=== PATIENT | female | born 1955 | race Caucasian/White ===

== ENCOUNTER 2017-09-29 15:52 | Inpatient (IN) | payer OTHER ==
[~2017-09-29] VITALS: Ht 170.2 cm; Wt 79.9 kg
--- NOTE | 2017-09-29 21:03 | ED PSYCHIATRIC COMPLAINT ---
See Addendum History of Present Illness General Chief Complaint: Psychiatric Related Complaint Stated Complaint: ANXIETY/DEPRESSION Source: patient, family Exam Limitations: no limitations Vital Signs & Intake/Output Vital Signs & Intake/Output Vital Signs Date Time Temp Pulse Resp B/P B/P Pulse O2 O2 Flow FiO2 Mean Ox Delivery Rate 09/30 1101 97.2 90 22 144/77 100 Room Air 09/30 1019 98.2 87 20 129/80 09/30 0900 98.2 87 20 129/80 96 Room Air 09/30 0644 97.0 85 18 142/68 97 Room Air 09/30 0020 98.2 90 18 132/76 98 Room Air 09/29 2207 100 Room Air 09/29 1600 98.8 100 16 128/88 97 Room Air ED Intake and Output 09/30 0000 09/29 1200 Intake Total Output Total Balance Patient 180 lb Weight Weight Reported by Patient Measurement Method Allergies Coded Allergies: No Known Allergies (09/29/17) Reconcile Medications Amlodipine Besylate 5 MG TABLET 1 TAB PO QAM BP (Reported) Clonazepam 0.5 MG TABLET 1 TAB PO QAM ANXIETY (Reported) Escitalopram Oxalate 20 MG TABLET 1 TAB PO QAM MENTAL HEALTH (Reported) Venlafaxine HCl (Venlafaxine HCl ER) 37.5 MG CAP.ER.24H 1 CAP PO DAILY MENTAL HEALTH (Reported) Triage Note: PT WAS AT THERAPY IN [place] AND BROKE DOWN CRYING AND WAS ASKED IF SHE WOULD LIKE TO COME TO HOSPITAL AND PT DECIDED SHE DID. PT STATES SHE WAS DOING OK AND THEN GOT BACK IN THE CYCLE OF DEPRESSION AND CURRENTLY TAKES MEDS FOR IT AND HAS BEEN TAKING THEM DIRECTED. PT STATES SHE HAS BEEN FEELING HERSELF FOR A WEEK AND WANTED TO GET IT CHECKED ON. PT DENIES SI/HI DENIES DRUG OR ETOH USE. Triage Nurses Notes Reviewed? yes Onset: Gradual Duration: getting worse Timing: recent history Severity: severe Severity Numbers: 10 HPI: Patient is a 62-year-old female with past medical history depression and anxiety and blood pressure since emergency room with concerns of worsening depression and anxiety were patient presents brought in by family members awaits the concern today was at the therapist visit of worsening depression and anxiety and patient is unable to perform her daily activities. Patient is compliant with her medications and nothing new for prescriptions. She denies any illness denies any suicidal or homicidal ideation or auditory or visual hallucinations. Denies any illicit drug use alcohol or tobacco use. Patient does live with her brother Family is also here to confirm story (Matias Watson) Past History Travel History Traveled to [place] past 21 day No Medical History Any Pertinent Medical History? see below for history Cardiovascular: hypertension Psychiatric: anxiety, depression Surgical History Surgical History: non-contributory Psychosocial History What is your primary language Martiniquais Tobacco Use: Never used ETOH Use: denies use Illicit Drug Use: denies illicit drug use Family History Hx Contributory? No (Matias Watson) Review of Systems Review of Systems Constitutional: Reports: no symptoms. EENTM: Reports: no symptoms. Respiratory: Reports: no symptoms. Cardiovascular: Reports: no symptoms. GI: Reports: no symptoms. Genitourinary: Reports: no symptoms. Musculoskeletal: Reports: no symptoms. Skin: Reports: no symptoms. Neurological/Psychological: Reports: see HPI, anxiety, depressed. Hematologic/Endocrine: Reports: no symptoms. Immunologic/Allergic: Reports: no symptoms. All Other Systems: Reviewed and Negative (Matias Watson) Physical Exam Physical Exam General Appearance: no apparent distress, alert, comfortable Head: atraumatic Eyes: Bilateral: normal appearance. Ears, Nose, Throat: hearing grossly normal Neck: normal inspection Respiratory: normal breath sounds Cardiovascular: regular rate/rhythm Neurological/Psychiatric: no motor/sensory deficits, awake, alert, normal mood/ affect Appearance/Memory/Insight: appropriate appearance, appropriate insight, denies illness Behavoir/Eye Contact/Speech: compulsive, normal speech, good eye contact Thoughts/Hallucinations: no apparent hallucination Skin: intact, normal color, warm/dry SAD PERSONS Done? patient not suicidal (Matias Watson) Progress Differential Diagnosis: drug intoxication, drug overdose, drug withdrawal, electrolyte abnormality, encephalitis, hypoglycemia, hypothyroidism, IC hem/mass /tumor, meningitis Plan of Care: Orders Procedure Date/time Status Regular Diet 09/30 B Active URINE DRUG SCREEN FOR ER ONLY 09/30 2119 Complete ETHANOL 09/30 2119 Complete COMPREHENSIVE METABOLIC PANEL 09/30 2119 Complete CBC WITHOUT DIFFERENTIAL 09/30 2119 Complete ED CRISIS PSYCH CONSULT 09/30 2119 Active Current Medications Sig/Oanh Start time Last Medication Dose Stop Time Status Admin Amlodipine Besylate 5 MG QAM 09/30 1000 UNVr 09/30 (Norvas) 1019 Laboratory Tests 09/29/17 2223: Anion Gap 12, Estimated GFR > 60, BUN/Creatinine Ratio 13.3, Glucose 101 H, Calcium 9.6, Total Bilirubin 0.8, AST 22, ALT 41, Alkaline Phosphatase 83, Total Protein 7.3, Albumin 4.5, Globulin 2.8, Albumin/Globulin Ratio 1.6, CBC w Diff NO MAN DIFF REQ, RBC 5.41 H, MCV 89.8, MCH 29.3, MCHC 32.7 L, RDW 13.6, MPV 7.8, Gran % 54.7, Lymphocytes % 34.1, Monocytes % 9.4 H, Eosinophils % 1.6, Basophils % 0.2, Absolute Granulocytes 4.4, Absolute Lymphocytes 2.8, Absolute Monocytes 0.8 H, Absolute Eosinophils 0.1, Absolute Basophils 0, Serum Alcohol < 10.0 09/29/17 2211: Urine Opiates Screen < 100, Methadone Screen 51, Barbiturate Screen < 60, Ur Phencyclidine Scrn < 6.00, Amphetamines Screen < 100, U Benzodiazepines Scrn < 85, Urine Cocaine Screen < 50, Urine Cannabis Screen < 5.00 Patient underwent initial examination shows no signs of intoxication Patient is not suicidal or homicidal and not a threat to herself or others Patient has unremarkable physical exam findings I had a long discussion with patient and family members in which they requested a psychiatric evaluation for her presentation of depression and anxiety, Blood work will be obtained urinalysis to be obtained Psychiatric consultation will most likely be provided to patient tomorrow which I explained to the patient she may leave due to her presentation however she will stay in the emergency room for her symptoms Discussed HANDoff to Dr. 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 (Ralph Verma MD) Departure Departure Disposition: STILL A PATIENT Condition: Stable Clinical Impression Primary Impression: Depression Secondary Impressions: Anxiety Referrals: Tuan Britton MD (PCP/Family) Departure Forms: Customer Survey General Discharge Information (Matias Watson) Departure Comments 09/30/17 1250 The patient was signed out to me by Dr. Verma at 7 AM. She is currently on a bed search by crisis. She complained of depression and anxiety on my evaluation. (Ralph Fuchs DO)
[2017-09-29] MEDS ORDERED: CLONAZEPAM0.5 M2 PO (21:51)
[2017-09-29] MEDS ORDERED: ESCITALOPRAM OX20 MG PO (21:51)
[2017-09-29] MEDS ORDERED: VENLAFAXINE H37.5 M4 PO (21:52)
[2017-09-29] MEDS ORDERED: AMLODIPINE BESYL5 M1 PO (21:52)
[2017-09-29 22:35] LABS: ABSOLUTE BASOPHIL COUNT 0 /CUMM (0.0-0.2); ABSOLUTE EOSINOPHIL COUNT 0.1 /CUMM (0.0-0.7); ABSOLUTE GRANULOCYTE CT 4.4 /CUMM (1.4-6.5); ABSOLUTE LYMPH COUNT 2.8 /CUMM (1.2-3.4); ABSOLUTE MONOCYTE COUNT 0.8 /CUMM (0.10-0.60); BASOPHIL % 0.2 % (0.0-2.0); EOSINOPHIL % 1.6 % (0-5); GRANULOCYTE % 54.7 % (42.2-75.2); HEMATOCRIT 48.6 % (37-47); MEAN CORPUSCULAR HGB 29.3 PG (27.0-31.0); MEAN CORPUSCULAR HGB CONC 32.7 G/DL (33.0-37.0); MEAN CORPUSCULAR VOLUME 89.8 FL (81.0-99.0); MEAN PLATELET VOLUME 7.8 FL (7.4-10.4); PLATELET COUNT 392 /CUMM (130-400); RBC DISTRIBUTION WIDTH 13.6 % (11.5-14.5); RED BLOOD CELL CT 5.41 /CUMM (4.20-5.40); WHITE BLOOD CELL COUNT 8.1 /CUMM (4.8-10.8)
--- NOTE | 2017-09-30 11:10 | ED PSYCH CRISIS CONSULTATION ---
Crisis Consult Basic Assessment Date of Consult: 09/30/17 Responsible Person/Accompanied By: self/sister Letitia Insurance Authorization: Insurance #1: Insurance name: DRAKE HERBERT Phone number: Policy number: [id number] Group number: Authorization number: ED Provider: Patient's ED Provider: Ralph Fuchs DO Primary Care Physician: Patient's PCP: Tuan Britton MD PCP's Current Psychiatrist: Dr Natalie Patel [phone] Chief Complaint: Psychiatric Related Complaint Patient's Quote: I'm feeling anxious. Worse than yesterday. I want to cry. Present Illness: Pt is a 62 yo female presenting to [facility] ED last evening after having "an emotional breakdown" in her therapist's office. Pt was brought to [facility] by her sister Letitia. Pt reports experiencing increased depression, anxiety, hopelessness and helplessness since being informed by her brother on Tuesday that she needs to find a new place to live. Pt has a hx of Major depression with an inpatient admission at [facility] in the 1980s for depressive episode and about 1 yr ago at [facility] in [facility] again for depression. Pt reports last admission was due to feeling overwhelmed with 's terminal illness. Pt has been living with her brother past yr since her husdand's . Pt reports past week experiencing anhedonia, loss of energy, inability to concentrate, inability to make decisions, over eating and hypersomnia. Pt reports spending days in bed. Pt is in outpatient therapy with Shy Ledesma and is prescribed Klonopin, Lexapro and Effexor by Dr Natalie King in [place]. She reports attempting to get in touch with Dr King this week but she is away from the office and didn't feel comfortable adjusting patients medication without meeting with her in person. 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 C-SSRS completed. Pt reports feeling overwhelmed with stress and is experiencing panic attacks. Pt denies SI/HI; AH/VH. No reports no hx of attempts or self injury. Pt reported protective factors are supportive family specifically 2 sisters and her ruben. Pt reports being an active Jehovah Witness. Pt presents as anxious and tearful but became more calm as consult proceeded. Pt is OX3 and reports not feeling safe at this time to be outside of the hospital. Case reviewed with Dr Nicolas with pt meeting criteria for a voluntary psychiatric admission. Pt agrees with plan and informed that crisis will conduct a bed search. Patient's Address: [address] [place] [id number] Other Phone Number: Who Do You Live With? Brother Family/Informants Interviewed: collateral provided by pt sister Letitia [phone]. She reports pt has always had emotional problems but has had more difficulties since her last yr. She reports pt is not functioning past week since their brother informed her she can't live their anymore. She reports pt is hopeless/helpless and getting worse. Allergies - Coded Allergies: No Known Allergies (09/29/17) Current Medications - Scheduled Medications Amlodipine Besylate 5 MG TABLET 1 TAB PO QAM BP #30 (Reported) Entered as Reported by Janey Crawford on 09/29/172151 Clonazepam 0.5 MG TABLET 1 TAB PO QAM ANXIETY #30 (Reported) Entered as Reported by Janey Crawford on 09/29/172150 Escitalopram Oxalate 20 MG TABLET 1 TAB PO QAM MENTAL HEALTH #30 (Reported) Entered as Reported by Janey Crawford on 09/29/172150 Venlafaxine HCl (Venlafaxine HCl ER) 37.5 MG CAP.ER.24H 1 CAP PO DAILY MENTAL HEALTH #30 (Reported) Entered as Reported by Janey Crawford on 09/29/172151 Laboratory Results: Laboratory Tests 09/29/172222: Anion Gap 12, Estimated GFR > 60, BUN/Creatinine Ratio 13.3, Glucose 101 H, Calcium 9.6, Total Bilirubin 0.8, AST 22, ALT 41, Alkaline Phosphatase 83, Total Protein 7.3, Albumin 4.5, Globulin 2.8, Albumin/Globulin Ratio 1.6, CBC w Diff NO MAN DIFF REQ, RBC 5.41 H, MCV 89.8, MCH 29.3, MCHC 32.7 L, RDW 13.6, MPV 7.8, Gran % 54.7, Lymphocytes % 34.1, Monocytes % 9.4 H, Eosinophils % 1.6, Basophils % 0.2, Absolute Granulocytes 4.4, Absolute Lymphocytes 2.8, Absolute Monocytes 0.8 H, Absolute Eosinophils 0.1, Absolute Basophils 0, Serum Alcohol < 10.0 09/29/17 2211: Urine Opiates Screen < 100, Methadone Screen 51, Barbiturate Screen < 60, Ur Phencyclidine Scrn < 6.00, Amphetamines Screen < 100, U Benzodiazepines Scrn < 85, Urine Cocaine Screen < 50, Urine Cannabis Screen < 5.00 Past History Past Medical History Cardiovascular: hypertension Psychiatric: anxiety, depression Past Surgical History Surgical History: non-contributory Psychosocial History Strengths/Capabilities: strong familyy support. Pt reports motivation to get help. Psychiatric Treatment History Psych Treatment Psychiatric Treatment Yes Inpatient Treatment Yes Outpatient Treatment Yes Location of Treatment [facility] (1980s); [facility] 2017; shy Baltazar outpatient - Reason for Treatment Depression Anxiety Response to Treatment Pt long hx of depression. Increased since spouse became ill and last yr. Diagnosis by History: Major Depression Substance Use/Abuse History Drug Use/Abuse Substances Used/Abused No Substance Abuse Treatment Substance Abuse Treatment Past Substance Abuse [place] No Inpatient Treatment No Outpatient Treatment No Comments: pt denies etoh and substance use Current Mental Status Mental Status Orientation: Person, Place, Situation Affect: Anxious, Depressed, Hopeless, Lonely, Sad Speech: WNL Neuro-vegetative: Anhedonia, Appetite Increased, Energy Decreased, Helpless, Hypersomnia, Loss of Interest, Sleep Disturbance Appearance Appearance- Dress/Hygiene: hospital scrubs; tearful; groomed, laying in bed during consult Behaviors Thought Process: WNL Thought Content: WNL Memory: WNL Insight: Fair SI/HI Risk Assessment Past Suicidal Ideation/Attempts No Current Suicidal Ideation/Att No Past Homicidal Ideation/Att: No Current Homicidal Ideation/Attempts No Degree of Intent: None Gravely Disabled: Inability Risk Factors: chronic/serious med cond., high anxiety/distress, SA/MH hospitalized Lethality Ratin PTSD Checklist PTSD Done? patient declined ED Management Sitter: Yes Restraints: No DSM5/PS Stressors/Medical Prob Diagnosis' (DSM 5, Stressors, Medical): Major depressive D/O F33.2 Panic D/O F41.0 bereavement housing finances hypertension Current GAF: 25 Comments: Pt reports increase in depression and anxiety past week escalted by brother telling her she will need to move out. Departure Disposition Psych Medical Clearance Date: 09/30/17 Medically Cleared at: 0800 Time Started: 0800 Time Ended: 0845 Psychiatrist Consulted: Benita Nicolas MD Date Disposition Established: 09/30/17 Time Disposition Established: 1200 Plan for Disposition - Modality: Inpatient Psychiatry Additional Instructions: [facility] [place] [phone] Referrals Reba GRIMALDO,Tuan Beavers (PCP/Family)
--- NOTE | 2017-09-30 15:10 | IP CRISIS DIAG ASSESS PSYCH ---
Diagnostic Assessment Basic Assessment Insurance Authorization: Insurance #1: Insurance name: DRAKE HERBERT Phone number: Policy number: [id number] Group number: Authorization number: [id number] Primary Care Physician: Patient's PCP: Tuan Britton MD PCP's Patient's Quote: I'm feeling anxious. Worse than yesterday. I want to cry. Present Illness: Pt is a 62 yo female presenting to [facility] ED last evening after having "an emotional breakdown" in her therapist's office. Pt was brought to [facility] by her sister Letitia. Pt reports experiencing increased depression, anxiety, hopelessness and helplessness since being informed by her brother on Tuesday that she needs to find a new place to live. Pt has a hx of Major depression with an inpatient admission at [facility] in the 1980s for depressive episode and about 1 yr ago at [facility] in [facility] again for depression. Pt reports last admission was due to feeling overwhelmed with 's terminal illness. Pt has been living with her brother past yr since her husdand's . Pt reports past week experiencing anhedonia, loss of energy, inability to concentrate, inability to make decisions, over eating and hypersomnia. Pt reports spending days in bed. Pt is in outpatient therapy with Shy Ledesma and is prescribed Klonopin, Lexapro and Effexor by Dr Natalie King in [place]. She reports attempting to get in touch with Dr King this week but she is away from the office and didn't feel comfortable adjusting patients medication without meeting with her in person. 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 C-SSRS completed. Pt reports feeling overwhelmed with stress and is experiencing panic attacks. Pt denies SI/HI; AH/VH. No reports no hx of attempts or self injury. Pt reported protective factors are supportive family specifically 2 sisters and her ruben. Pt reports being an active Jehovah Witness. Pt presents as anxious and tearful but became more calm as consult proceeded. Pt is OX3 and reports not feeling safe at this time to be outside of the hospital. Case reviewed with Dr Nicolas with pt meeting criteria for a voluntary psychiatric admission. Pt agrees with plan and informed that crisis will conduct a bed search. Patient's Address: [address] [place] [id number] Other Phone Number: Who Do You Live With? Brother Feel Safe Where You Live? Yes Feel Safe in Your Relationship Yes Marital Status: Do You Have Children? No Primary Language? Thai Language(s) Spoken At Home: Thai Family/Informants Interviewed: collateral provided by pt sister Letitia [phone]. She reports pt has always had emotional problems but has had more difficulties since her last yr. She reports pt is not functioning past week since their brother informed her she can't live their anymore. She reports pt is hopeless/helpless and getting worse. Allergies - Coded Allergies: No Known Allergies (09/29/17) Current Medications - Scheduled Medications Amlodipine Besylate 5 MG TABLET 1 TAB PO QAM BP #30 (Reported) Entered as Reported by Janey Crawford on 09/29/172151 Clonazepam 0.5 MG TABLET 1 TAB PO QAM ANXIETY #30 (Reported) Entered as Reported by Janey Crawford on 09/29/172150 Escitalopram Oxalate 20 MG TABLET 1 TAB PO QAM MENTAL HEALTH #30 (Reported) Entered as Reported by Janey Crawford on 09/29/172150 Venlafaxine HCl (Venlafaxine HCl ER) 37.5 MG CAP.ER.24H 1 CAP PO DAILY MENTAL HEALTH #30 (Reported) Entered as Reported by Janey Crawford on 09/29/172151 Consequences of Psych Med Use: pt reports no med changes since January 2017 Lab Results: Laboratory Tests 09/29/172222: Anion Gap 12, Estimated GFR > 60, BUN/Creatinine Ratio 13.3, Glucose 101 H, Calcium 9.6, Total Bilirubin 0.8, AST 22, ALT 41, Alkaline Phosphatase 83, Total Protein 7.3, Albumin 4.5, Globulin 2.8, Albumin/Globulin Ratio 1.6, CBC w Diff NO MAN DIFF REQ, RBC 5.41 H, MCV 89.8, MCH 29.3, MCHC 32.7 L, RDW 13.6, MPV 7.8, Gran % 54.7, Lymphocytes % 34.1, Monocytes % 9.4 H, Eosinophils % 1.6, Basophils % 0.2, Absolute Granulocytes 4.4, Absolute Lymphocytes 2.8, Absolute Monocytes 0.8 H, Absolute Eosinophils 0.1, Absolute Basophils 0, Serum Alcohol < 10.0 09/29/17 2211: Urine Opiates Screen < 100, Methadone Screen 51, Barbiturate Screen < 60, Ur Phencyclidine Scrn < 6.00, Amphetamines Screen < 100, U Benzodiazepines Scrn < 85, Urine Cocaine Screen < 50, Urine Cannabis Screen < 5.00 Toxicology Screen Completed? Yes Results: negative Symptoms of Use: denies use Past History Abuse/Trauma History Trauma History/Current Trauma: Denies Legal History Current Legal Status: none Psychosocial History Strengths/Capabilities: strong familyy support. Pt reports motivation to get help. Psychiatric Treatment History Psych Treatment Psychiatric Treatment Yes Inpatient Treatment Yes Outpatient Treatment Yes Location of Treatment [facility] (1980s); [facility] 2017; shy Ledesma outpatient - Reason for Treatment Depression Anxiety Response to Treatment Pt long hx of depression. Increased since spouse became ill and last yr. Diagnosis by History: Major Depression Risk Factors: chronic/serious med cond., high anxiety/distress, SA/MH hospitalized Substance Use/Abuse History Drug Use/Abuse minimum 12mo Hx Substances Used/Abused No Substance Abuse Treatment Substance Abuse Treatment Past Substance Abuse [place] No Inpatient Treatment No Outpatient Treatment No Education History Highest Level of Education: some college Preferred Learning Style: visual, auditory, experiential Current Mental Status Mental Status Orientation: Person, Place, Situation Affect: Anxious, Depressed, Hopeless, Lonely, Sad Speech: WNL Neuro-vegetative: Anhedonia, Appetite Increased, Energy Decreased, Helpless, Hypersomnia, Loss of Interest, Sleep Disturbance Appearance Appearance- Dress/Hygiene: hospital scrubs; tearful; groomed, laying in bed during consult Behaviors Thought Process: WNL Thought Content: WNL Memory: WNL Insight: Fair SI/HI Risk Assessment - Minimum 6mo History- Past Suicidal Ideation/Attempts No Current Suicidal Ideation/Att No Past Homicidal Ideation/Att: No Current Homicidal Ideation/Attempts No Degree of Intent: None Gravely Disabled: Inability Risk Factors: chronic/serious med cond., high anxiety/distress, SA/MH hospitalized Lethality Ratin Needs/Init TX Plan/Goals: Psychiatric Evaluation Medication Assessment Individual Group and Family Meetings Coordinated Discharge Planning AUDIT-C Questionnaire: AUDIT-C Questionnaire: Response Value ETOH use in the past year Never 0 # drinks typical/day Doesn't Drink 0 6 or > drinks per occasion Never 0 Total 0 DSM5/PS Stressors/Medical Prob Diagnosis' (DSM 5, Stressors, Medical): Major depressive D/O F33.2 Panic D/O F41.0 bereavement housing finances hypertension Current GAF: 25 Comments: Pt reports increase in depression and anxiety past week escalted by brother telling her she will need to move out.
[2017-09-30 19:10] VITALS: BP 145/91
[2017-10-01 07:54] VITALS: BP 131/69
[2017-10-01 12:07] VITALS: BP 132/88
--- NOTE | 2017-10-01 12:45 | CPS PROVIDER INIT ASMT PSYCH ---
Psychiatric Admission Ground Operations Crew Member's Note Reviewed: Yes Patient Seen and Examined: Yes Identifying Information: middle aged white woman, well groomed Chief Complaint: depression Reaction to Hospitalization: agreeable History of Present Illness Onset of Illness: just over one year ago since of Circumstances Leading to Admission: depression, anxiety, and pending loss of housing situation. Problem(s) Justifying Need for Admission: depression, hopeless Other HPI: S This is a 62 year old woman wth a history of depressive and anxiety sx, who was brought in after an emotional appt in her therapists office by her family member. Her of 20 years in August one year ago, and she has been living at her brothers home for the last year, and recently found out that she would be unable to live there any longer. She reports anhedonia, loss of energy, staying in bed, not being able to function initially. Also endorses panic attacks. She is anxious, talkative and tangential, but not psychotic or disorganized. She stated that when her was ill last year she was also hospitalized, in [facility]. She reported one past admission to [facility] about 30 years ago. She denies suicide attempts, active suicidal thoughts or recent thoughts or plans. Has has no evidence of hallucinations. She has been taking lexapro clonazepam and Effexor w/o issue with her therapist for some time. Past Psychiatric History Past Diagnosis(es)- if any: depressive and anxiety disorders Past Precipitating Factors- if any: loss of - Include inpatient and outpatient treatment Treatment History: outpatient treatment. History of Suicide Attempts or Gestures denies Substance Abuse History: denies Allergies: Coded Allergies: No Known Allergies (09/29/17) Home Med List: lexapro, clonazepam, effexor - Include any medical condition(s) that may - impact the patient's recovery/remission Past Medical History: hypertension on amlodipine Past History Medical History Cardiovascular: hypertension Psychiatric: anxiety, depression Surgical History Surgical History: non-contributory Psychiatric Family/Social Hx Family History Psychiatric Illness: denies Substance Use: denies Suicides: denies Social History Living Situation: living with brother and his Significant Relationships (family/friends): one year ago Education: completed freshman year, mother took her out and gave her a special education tutor, however she did not graduate or get her ged 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 - #1 Recognizing dangerous situations. - #2 Coping Skills. - #3 Basic information about quitting. Status of Tobacco Cessation Counseling: Not Applicable Cessation Med Status Not Applicable Alcohol Screening - ETOH screen POS if BAL >=80 or Audit-C>= M4/F3 Audit-C Score from Diag Assess: 0 Blood Alcohol Level: Laboratory Tests 09/29 2222 Toxicology Serum Alcohol (<10 MG/DL) < 10.0 Alcohol Use Screening Results: Neg per Audit C &/or BAL - If ETOH counseling indicated - the following topics are required. - #1 Express concern about the patient's - drinking at unhealthy levels, include informing - of national norms for moderate drinking: - men <= 14 drinks/week, max 4 drinks/occasion - women <= 7 drinks/week, max 3 drinks/occasion - #2 Providing feedback, including linking alcohol to - negative physical effects (liver injury, hypertension) - negative emotional effects (relationship problems and - depression) - negative occupational consequences (reduced work - performance) - #3 Advising the patient to abstain from alcohol or - to drink below national norms for moderate drinking - (as listed above). Status of ETOH Use Counseling: N/A B/C NO ETOH Use Metabolic Screening - Screen if on a Neuroleptic Medication - Metabolic screening should include: - Blood Pressure, BMI, Glucose or Hgb A1c, & a - Lipid profile from within the past 365 days. Metabolic Screening () Not Applicable, patient not on a neuroleptic. OR () Patient on a neuroleptic(s) . Enter below results for Hemoglobin A1C, and lipid panel if obtained during the last 365 days. BMI: 27.600 Blood Pressure: 144/80 Laboratory Results From [facility] (If applicable): Exam and Plan Mental Status Examination Ambulation Status: intact Appearance: well groomed Attitude towards examiner: pleasant Psychomotor activity: normal Behavior: somewhat anxious Quality of speech: normal Affect: full Mood: anxious Suicidal Ideation: none Homicidal Ideation: none Hallucinations: none Paranoid/Delusional Material: none Difficulties with thought organization: somewaht tangential but out of anxiety rather than a thought disorder Insight: fair Judgment: fair Orientation: x3 Cognition: intact, Memory Function: intact Estimate of intellectual functioning: average - despite her poor education level, appears to have functioned well per her, with work history. Assets/Strengths Patient Identified Assets/Strengths: self aware, self advocate Impression/Plan Impression and Plan: 62 year old woman with worsening depression, neuroveg sx including anhedonia, withdrawal, increased sleep, lethargy, presented after pending loss of housing. She has a number of stressors and needs further adjustment of her medications and addressing her residual sx during her admission. Plan; Continue effexor, lexapro - she is at low doses, however her qtc is 505. Will discuss with global position system technician tmr, repeat ekg. She is asymptomatic. Her labs look normal. She is on amlodipine for her hypertension. - Include all active medical diagnosis that require tx DSM 5 Diagnosis(es): r/o mdd - Initial Tx Plan for Active Psych & Medical Conditions Treatment Plan: milieu therapy, groups, individual therapy, family meeting if indicated, medication. - Factors that would help patient function - in a less restrictive setting. Factors: poor functioning, recent loss of spouse, potential lack of housing. Address with education, support, milieu therapy, groups, physical activity, medication, and collateral from therapist if indicated.
[2017-10-01 16:06] VITALS: BP 136/85
[2017-10-01 19:50] VITALS: BP 144/80
--- NOTE | 2017-10-01 22:40 | History & Physical ---
General Information and HPI MD Statement: Patient was seen in the psychiatric unit for routine medical history and physical. History of Present Illness: Patient is a 62-year-old female with history of depression admitted to the psychiatric unit for further management of her symptoms. Currently offers no complaints. Denies cough. Denies nausea vomiting. Denies abdominal pain. Denies heat or cold intolerance. Denies weight loss. Denies dysuria. Denies diarrhea or constipation. Denies bloody stools. Routine EKG done in the psychiatric service shows nonspecific T-wave inversions. Patient denies any cardiac history. Denies any complaints of chest pain or shortness of breath. denies palpitations. She gives no family history of coronary disease although she stated her mother had some type of arrhythmia Allergies/Medications Allergies: Coded Allergies: No Known Allergies (09/29/17) Home Med list Amlodipine Besylate 5 MG TABLET 1 TAB PO QAM BP (Reported) Escitalopram Oxalate 20 MG TABLET 1 TAB PO QAM MENTAL HEALTH (Reported) Past History Travel History Traveled to [place] past 21 day No Medical History Cardiovascular: hypertension Psychiatric: anxiety, depression Surgical History Surgical History: non-contributory Past Family/Social History Psychosocial History ETOH Use: denies use Illicit Drug Use: denies illicit drug use Review of Systems Review of Systems Constitutional: Denies: see HPI. Exam & Diagnostic Data Last 24 Hrs of Vital Signs/I&O Vital Signs Date Time Temp Pulse Resp B/P B/P Pulse O2 O2 Flow FiO2 Mean Ox Delivery Rate 10/01 1950 98.4 99 144/80 10/01 1606 93 136/85 10/01 1207 88 132/88 10/01 0758 99 131/69 10/01 0754 98.7 99 131/69 Intake & Output 10/01 1600 10/01 0800 10/01 0000 Intake Total Output Total Balance Patient 79.946 kg Weight Physical Exam General Appearance Alert, Oriented X3, Cooperative, No Acute Distress Skin No Rashes HEENT Atraumatic, PERRLA, EOMI, Mucous Membr. moist/pink Neck Supple Lymphatic Axillary nl, Cervical nl Cardiovascular Regular Rate, Normal S1, Normal S2, No Murmurs Lungs Clear to Auscultation, Normal Air Movement Abdomen Normal Bowel Sounds, Soft, No Tenderness Neurological Exam Findings: Normal Gait, Normal Speech, Strength at 5/5 X4 Ext Cranial Nerves II through XII: WNL Extremities No Clubbing, No Cyanosis, No Edema, Normal Pulses Assessment/Plan Assessment: 62-year-old female with history of depression abated psychiatry service for further management of symptoms. She has no other significant medical history other than psychiatric history. Found to have nonspecific T-wave changes on EKG. This was done routinely. She offers no complaints. No EKG for comparison. Recommend evaluation of EKG by the cardiology service. Further disposition will be based on their recommendations. This was discussed with the psychiatric unit staff. As Ranked By This Provider Problem List: 1. Depression Miscellaneous Miscellaneous Documentation Attending Case Discussed With: Benita Nicolas MD Primary Care Physician: Tuan Britton MD Level of Patient Care: Solomon
[2017-10-02 07:36] VITALS: BP 136/64
[2017-10-02 11:58] VITALS: BP 137/84
--- NOTE | 2017-10-02 14:47 | CP SOUTH PROGRESS NOTE PSYCH ---
Psych (Inpt) Progress Note Progress Note Include the following elements, when applicable: Involvement in the active treatment of the patient with behavioral observations of the patient and the patient's response to the treatment. Review of the ongoing treatment process in the context of the treatment plan. Indication of how multi-disciplinary staff members are carrying out the treatment plan. Plans for future interventions and recommendations for revision of the treatment plan. Liaison with other physicians/providers. Progress Note: Woke up early b/c roommate heavy breather but otherwise no issues. Appeared anxious today and less willing to speak with me, but overall pleasant and well related. She asked about her discharge and I informed her that the team will meet her tmr and discuss her tx plan. She stated that she has regained her appetite, joking that she has gained too much weight for how much she has been eating in the last years. Sleep fine apart from her roommate. Has been socializing well. Repeat ekg was 485 qtc improving. MSE: fairly well groomed woman, coherent logical but anxious. Her mood is neutral and affect is full and reactive. Speech is normal. Her thinking is concrete. Her thought content is free of delusions, thoughts to harm self "I never think like that" she stated or anyone else. Not hallucinating. Her insight is fair and judgment is fair. 62 year old woman w/ hx depressive sx, loss of spouse one year ago, with slow improvement in level of her anxiet and depression. continue current plan of care. Band Sawyer stated will comment on ekg if notable.
[2017-10-02 15:47] VITALS: BP 146/91
[2017-10-02 19:33] VITALS: BP 148/76
[2017-10-03 07:41] VITALS: BP 148/86
[2017-10-03 12:16] VITALS: BP 148/86
--- NOTE | 2017-10-03 15:07 | CP SOUTH PROGRESS NOTE PSYCH ---
Psych (Inpt) Progress Note Progress Note Vital Signs Date Time Temp Pulse B/P O2 FiO2 10/03 1216 100 148/86 10/03 0858 148/86 10/03 0741 98.8 99 148/ MSE: The patient had odd responses ?? seemed to be thought disordered or overwhelmed , or both seemed very anxious, she acknowledged feeling depressed and anxious; she was tearful during the interview, she was talkative with mild pressure I did not pick up driver on any delusions, denied thoughts to harm self/ "I never think like that" she denied hallucinations, she has regained her appetite, Assessment: 62 year old woman w/ hx depressive sx, loss of spouse one year ago, with slow improvement in level of her anxiet and depression. Plan: D/C PRN Neurontin Add PRN Ativan for anxiety and insomnia as she appeared very anxious/overwhelmed
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
--- NOTE | 2017-10-03 16:45 | SOCIAL WORKER PROG NOTE PSYCH ---
Social Work Progress Note Progress Note Attempted to engage Paola in some discussion about what brought her to the ER. She shared that she lost her a year ago this past August. Her had chirrosis of the liver. She reports being traumatized by the loss. I asked if she received any therapy at the time of her loss? She said no, but then later shared that she was currently in treatment with a therapist (María Chowdary )once a week in [place] and a psychiatrist (Dr. Natalie Patel). She said she has been staying with her Brother Tim in [place] since she lost her . She is fore[place] her [place] [facility] [place] She stated that she does need to move on from her Brother's house. I asked if she felt pressure to do so? She said no and that he treats her well. She has put her name on a housing list in [place] and plans to put her name on other housing lists potentially. I asked if she would sign a release for her Brother? It took her 15 minutes to review the release and ask questions. She asked if I had a zipdrive to a computer? I told her I didn't and that her information does not leave the hospital unless she permits it to do so. She seemed particularly paranoid around that topic. She then rewrote the whole release in her hand writing and eventually signed it for her Brother and 2 Sisters. She shared that she would like to meet with them in person. I told her I would be setting up a meeting. Her presentation was somewhat disorganized and paranoid. She later asked if she could use my office phone to call her Brother. I told her that she really needed to use the patient phone. She seemed a little irritated by my response.
[2017-10-03 20:06] VITALS: BP 126/70
[2017-10-04 07:52] VITALS: BP 151/93
--- NOTE | 2017-10-04 11:07 | SOCIAL WORKER PROG NOTE PSYCH ---
Social Work Progress Note Progress Note SAM VILLA [id number] 1955 SAM VILLA [id number] Pended Authorization # Client Authorization # Type of Request [id number] CONCURRENT Date of Admission/ Start of Services Requested From Submission Date 09/30/2017 10/04/2017 10/04/2017
--- NOTE | 2017-10-04 11:10 | SOCIAL WORKER PROG NOTE PSYCH ---
Social Work Progress Note Progress Note Called Paola's Brother August to schedule a family meeting [phone]. Told him I was looking to also involve his Sister Letitia. He suggested that I contact Letitia as she has a more difficult schedule. Called Letitia [phone]. She would also like her Sister Vivi there. Ended up needing to coordinate a meeting for Tuesday at 1:30pm. Letitia expressed how difficult it' s been trying to help Paola. She specifically stated "she needs to learn how to do things for herself." She shared that Paola was not in contact with her family for many years. She feels that Paola's was very controlling and that he was not that nice of a person even though Paola may portray him that way. She said that now she is just getting to know her sister again. She really doesn't know what things were like for her before. She said [place] in [place] was filthy and that she was collecting plastic bags. She shared that she is going to have to move out of her Brother's home at some point. She stated that her Brother's has a Bipolar Disorder and Paola's behaviors/ symptoms are impacting her sister yarely. Met with Paola. She reported not sleeping that well due to her roommate snoring. She was moved to another room, so hopefully that issue will resolve tonight. She reported no anxiety today and no issues with her mood. She presented herself as if everything is fine. She reports no voices and no negative thoughts. She didn't appear as disorganized and thought disordered as yesterday. She wanted to keep her meeting with me brief though. She didn't want to really talk about anything. Not sure if she is feeling guarded/ paranoid? I asked how everything has been going at her Brother's house? She reported that everything has been great and she is very luis e to have good support. I asked if she was fearful about moving out of her Brother's? She said she wasn't. She is thinking of asking a friend of hers to possibly share an apartment. She seems to think it would be feasible and she could afford a rent if she split the cost with someone.
[2017-10-04 12:22] VITALS: BP 142/84
--- NOTE | 2017-10-04 13:49 | CP SOUTH PROGRESS NOTE PSYCH ---
Psych (Inpt) Progress Note Progress Note Vital Signs: Temperature 98.0F, pulse 100 beats per minutes, respiratory rate 20 respirations per minute Blood pressure 151/93 MSE: Patient was perseverating about dry mouth The patient reported that she slept better last night. She seemed to be less disordered in her thinking today and less overwhelmed. She did not have any crying episodes. She was not visibly distressed with anxiety as she was yesterday. she acknowledged feeling depressed and anxious; she seems to have some obsessiveness regarding her late , it seemed that she may have been too dependent on him and feels lost after he , she even struggled with the simple task of paying bills which she always did for her. She denied hallucinations, there was some inappropriate sense of humor including talking about whether she has hearing his voice are not she said that she said she was than she laughed about it and said that she was just joking." She was talkative with mild pressure, I did not pick and shovel worker on any delusions, denied thoughts to harm self/ she denied hallucinations, She seems to have difficulty with attention concentration and information processing Assessment: 62 year old woman w/ hx depressive sx, loss of spouse one year ago, who presents with what seems to be thought disorder, difficulties with attention concentration information processing reaching to the point of confusion at times Differential diagnosis includes severe depression with psychotic features Plan: Discontinue Benadryl because of her complaints of dry mouth Discontinue melatonin Continue PRN Ativan for anxiety and insomnia Continue Risperdal 1 mg twice daily
[2017-10-04 16:14] VITALS: BP 152/90
--- NOTE | 2017-10-04 18:43 | Cons- Cardiology ---
"General Information and HPI Consulting Request Date of Consult: 09/20/17 Requested By: Rick Oakley MD Reason for Consult: Chest pain, abnormal EKG History of Present Illness: The patient is a pleasant 62-year-old female with history of hypertension who is admitted for depression. She had an episode of chest pain 1 week ago. She describes the pain as a right-sided dull pain which was a 5 out of 10 in severity, and lasted for 1 minute before resolving. She also occasionally has brief episodes of mild burning in her chest which is similar to her frequent heartburn, and responds to Tums. She is currently pain-free. No shortness of breath. No palpitations. No diaphoresis. No syncope. No orthopnea. No lightheadedness or dizziness. No nausea or vomiting. Allergies/Medications Allergies: Coded Allergies: No Known Allergies (09/29/17) Home Med List: Amlodipine Besylate 5 MG TABLET 1 TAB PO QAM BP (Reported) Escitalopram Oxalate 20 MG TABLET 1 TAB PO QAM MENTAL HEALTH (Reported) Current Medications: Current Medications Sig/Oanh Start time Last Medication Dose Route Stop Time Status Admin Amlodipine Besylate 5 MG QAM 09/30 1000 AC 10/05 PO 0757 Calcium Carbonate 500 MG BID PRN 10/03 2215 AC 10/04 PO 1251 Escitalopram Oxalate 20 MG DAILY 09/30 1647 AC 10/05 PO 0757 Lorazepam 1 MG Q4 HRS NEEDED PRN 10/03 1715 AC 10/05 PO 10/10 0600 0944 Lorazepam 1 MG AT BEDTIME NEED.. 10/03 1515 AC PO Risperidone 1 MG ONCE ONE 10/04 1615 DC 10/04 PO 10/04 1616 1613 Risperidone 1 MG BID 10/03 2200 AC 10/05 PO 0757 Review of Systems Review of Systems: No rash. No tremor. No fever. No chills. All other systems were reviewed, and were noted to be negative. 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 Exam & Diagnostic Data Vital Signs and I&O Vital Signs Date Time Temp Pulse Resp B/P B/P Pulse O2 O2 Flow FiO2 Mean Ox Delivery Rate 10/05 1226 92 124/70 10/05 0757 98.1 92 20 146/90 10/05 0744 98.1 92 146/90 10/04 1943 97.9 112 145/78 10/04 1614 96 152/90 Physical Exam: Gen: The patient is in no acute distress HEENT: Normal nose, ears, and oropharynx. Pupils equal bilaterally. Conjunctiva normal. Neck: Supple with no JVD, no masses, and no thyromegaly Lungs: Clear to auscultation with normal respiratory effort Heart: RRR, S1, S2, no murmurs. No peripheral edema, 2+ pulses in the lower extremities bilaterally Abdomen: Soft, nontender, no masses. No hepatomegaly. No splenomegaly Extremities: No clubbing or cyanosis. Normal muscle strength in the upper and lower extremities Skin: Normal skin turgor with no skin ulcers or lesions noted. Neuro: Cranial nerves intact. Sensation intact Psych: Alert and oriented x 3 with appropriate affect Labs/Jose Results: > GLUCOSE | 101 | H | 65-99 mg/dL > BUN | 12 | | 7-17 mg/dL > CREATININE | 0.9 | | 0.5-1.0 mg/dL | > GFR | > 60 | | >60 ml/min | MULTIPLY THIS RESULT BY 1.210 IF THE PATIENT IS | PUERTO RICAN. Factors for age and gender have been applied to | this result. | | In compliance with [place] State law, estimated GFR is | reported along with all serum creatinine results. The GFR | has been calculated using the MDRD equation and is reported | in units of ml/min/1.73 square meter body surface area. The | MDRD GFR equation is not valid for patients <18 years of | age, or for women. > SODIUM | 140 | | 137-145 mmol/L | > POTASSIUM | 3.9 | | 3.5-5.1 mmol/L | > CHLORIDE | 100 | | 98-107 mmol/L | 03/ 15/18-2311 > CARBON DIOXIDE | 27 | | 22-30 mmol/L Diagnostic Data EKG Results EKG tracing is independently reviewed, and reveals NSR at 83, LAD, T wave abnormality Other Results Digital screening mammogram: 1. Indeterminate nodular densities are seen in the right breast 10:00, 4:00 and 11:00 positions. Further assessment with right breast CC and ML spot tomographic images and focused ultrasound is recommended. 2. There is no mammographic evidence of malignancy in the left breast. 3. Given the patient's dense breast tissue, additional assessment with bilateral screening breast ultrasound is also recommended. Assessment/Plan Assessment/Plan The patient is a 62-year-old female with history of hypertension who was admitted for depression. While in the hospital she was noted to have a brief episode of chest pain. She has an abnormal EKG. She is currently pain free. Recommendations: * Echocardiogram ordered to evaluate for structural heart disease given abnormal EKG * If the patient has further chest pain in the hospital, then an inpatient stress test may be performed. If she remains pain-free, then I recommend outpatient stress testing. * Follow-up in the office within 1 week after discharge to arrange for outpatient workup. Consult Acknowledgment - Thank you for your consult request."
[2017-10-04 19:43] VITALS: BP 145/78
[2017-10-05 07:44] VITALS: BP 146/90
--- NOTE | 2017-10-05 08:39 | SOCIAL WORKER PROG NOTE PSYCH ---
See Addendum Social Work Progress Note Progress Note Called and left a message for therapist María Ledesma [phone].
--- NOTE | 2017-10-05 11:58 | SOCIAL WORKER PROG NOTE PSYCH ---
Social Work Progress Note Progress Note Pension Agent spoke with Paola this morning. Paola reported to be feeling "low". She stated that she had taken a medication (Ativan per Sarina and the chart) that was making her feel sleepy and down. She initially reported that this was the only thing making her feel down. Pension Agent asked Paola about what had initially brought her in to the hospital. She reported that she had been having panic attacks and that she was feeling pressure to move out of her brother's home. Though she stated that she felt that she was ready to "move on", Paola expressed some reluctance in moving out. She stated that she had called a housing complex in [place] that had a year long waitlist. She and this radio script writer also spoke about her . Paola spoke about how difficult her 's illness was to cope with. She spoke about the many doctor's appointments, and fear and fright that she experienced from his spiking ammonia levels and subsequent encephalopathy. Paola also stated that she hoped that her knew that she did her best to give him the best care possible. Pension Agent stated that her lived three years with significant cirrhosis and liver damage which most likely was a testament to her dedication and the care that he received. Paola stated that she appreciated this radio script writer saying that. and Paola spoke about the possibility of Paola attending some bereavement groups after discharge. Paola was open to this idea and stated that doing so might help her accept and overcome her fear around the fact that she now has a "completely new life" to start. Paola stated that her outside therapist had recommended several bereavement groups. Paola thanked radio script writer for speaking with her and that she was feeling a little "brighter" but that she was feeling very tired from the medication.
[2017-10-05 12:26] VITALS: BP 124/70
--- NOTE | 2017-10-05 13:59 | CP SOUTH PROGRESS NOTE PSYCH ---
Psych (Inpt) Progress Note Progress Note Vital Signs Date Time Temp Pulse Resp B/P B/P FiO2 10/05 1226 92 124/70 10/05 0757 98.1 92 20 146/90 Vital Signs: Temperature 98.1F, Pulse: 92 beats per minutes, respiratory rate 20 respirations per minute Blood pressure 124/70 MSE: Patient did not have physical complaints today. The patient reported that she slept well last night. She seemed to be less disordered in her thinking today and less overwhelmed. She did not have any crying episodes. Her anxiety seems more manageable today. she acknowledged feeling depressed and anxious; less obsessiveness regarding her late . She denied hallucinations. There were no specific delusions observed during the interview today. Less talkative , no pressure, she denied thoughts to harm self/ she denied hallucinations. Some difficulty with attention concentration and information processing Assessment: Paola is 62 year old white woman ho presents with what seems to be thought disorder, difficulties with attention concentration information processing reaching to the point of confusion at times Differential diagnosis includes severe depression with psychotic features Treatment plan: Continue PRN Ativan for anxiety and insomnia Continue Risperdal 1 mg twice daily continue inpatient psychiatric care with safety checks every 15 minutes Nursing assessments vital signs and patient education and Group therapy and milieu therapy ACQUISITION MARKETING COORDINATOR: Collateral, family meeting, biopsychosocial assessment, and aftercare planning Psychiatrist to evaluate patient daily for medication monitoring on mental status evaluation
[2017-10-05 16:02] VITALS: BP 148/64
[2017-10-05 19:45] VITALS: BP 139/59
[2017-10-06 07:40] VITALS: BP 146/91
[2017-10-06 11:52] VITALS: BP 147/84
--- NOTE | 2017-10-06 12:40 | CP SOUTH PROGRESS NOTE PSYCH ---
Psych (Inpt) Progress Note Progress Note Vital Signs Date Time Temp Pulse B/P B/P Pulse O2 FiO2 10/06 1152 108 147/84 10/06 0804 96 146/91 10/06 0740 96.5 96 146/91 MSE: Patient patient reported feeling dry mouth and nausea The patient was alert, and oriented to time, place, and person. The patient reported that she slept well last night. The patient continues to struggle to organize her thoughts. She did not have any crying episodes during the interview today. Her anxiety seems more manageable today. She acknowledged feeling depressed and anxious; less obsessiveness regarding her late . Paola denied hallucinations. There were no specific delusions observed during the interview today. Paola was less talkative, no pressure, she denied thoughts to harm self/she denied hallucinations. Greyson reported that she does not remember as seeing me yesterday if she had Alzheimer's disease, she did acknowledge difficulties with memory as well as difficulty with attention concentration and information processing Assessment: Paola is 62-year-old white woman ho presents with what seems to be thought disorder, difficulties with attention concentration information processing reaching to the point of confusion at times Differential diagnosis includes severe depression with psychotic features Treatment plan: Zofran 4 mg as needed for nausea or vomiting Continue PRN Ativan for anxiety and insomnia Continue Risperdal 1 mg twice daily continue inpatient psychiatric care with safety checks every 15 minutes Nursing assessments vital signs and patient education and Group therapy and milieu therapy EDI DEVELOPER: Collateral, family meeting, biopsychosocial assessment, and aftercare planning Psychiatrist to evaluate patient daily for medication monitoring on mental status evaluation
[2017-10-06 16:04] VITALS: BP 118/71
--- NOTE | 2017-10-06 16:55 | SOCIAL WORKER PROG NOTE PSYCH ---
Social Work Progress Note Progress Note Paola was in a good mood. She shared that she had spoke with her Brother Stan in [facility] and he was going to help her get a place in [facility]. She seemed very pleased with this plan and seemed excited about a possible opportunity to go there. She has been to [facility] before to visit. She seemed more organized with her thoughts and affect seemed appropriate. I asked if she was feeling different since admission? She said she was and that she feel's stronger and more functional. She said she feels that being here has been beneficial. She has enjoyed the groups and talking about coping skills. She was very appreciative of the help. I praised her for being open to it all and her participation and willingness to try medication. Talked about participating in [facility] as an option for discharge. She said she had already been thinking about that. I mentioned [facility] possibly being closer to [place]. She stated she feels more comfortable going to places that she knows and that she is more familiar with this area. She stated she would be able to drive to [facility]. Told her she could still see her therapist for more individual therapy if she was interested. She stated she really likes her therapist and would like to do that. Talked about discussing her plans at the family meeting tomorrow. She shared that she has more difficulties in the morning getting out of bed. She feels more unmotivated and groggy. She was able to work on some positive self talk to help herself move forward. Encouraged her to continue that. She cried at one moment during our meeting, when she talked about her . She said she had spent alot of time focused on his care at the end. We talked about how she deserves to not feel guilty that she is now relieved of those duties and that she can start her new life that has new opportunities out there for her.
[2017-10-06 19:54] VITALS: BP 145/85
[2017-10-07 07:39] VITALS: BP 130/76
[2017-10-07 12:11] VITALS: BP 141/80
--- NOTE | 2017-10-07 12:33 | ECHOCARDIOGRAM REPORT ---
SAM VILLA Age: 62 : 1955 Gender: F Exam Date: 10/06/2017 17:14 Exam Location: [facility] Ht (in): 67 Wt (lb): 176 BSA: 1.96 BP: 146 / 91 Ordering Physician: Daniel Collier MD Referring Physician: Daniel Collier MD Technologist: Cole Bernal [facility] Room Number: B6-02 Indications: CHEST PAIN Rhythm: Sinus Technical Quality: Fair FINDINGS Left Ventricle Normal size left ventricle. Mild concentric left ventricular hypertrophy. Left ventricular ejection fraction is estimated at >60%. No obvious regional wall motion abnormalities. Right Ventricle Normal right ventricular size and function. Right Atrium Normal right atrial size. Left Atrium Normal left atrial size. Mitral Valve Structurally normal mitral valve. Trace mitral regurgitation. Aortic Valve Structurally normal trileaflet aortic valve. No aortic stenosis. No aortic regurgitation. Tricuspid Valve Tricuspid valve not well visualized, grossly normal. Trace tricuspid regurgitation. Pulmonic Valve Pulmonic valve not well visualized, grossly normal. Trace pulmonic regurgitation. Pericardium No pericardial effusion. Great Vessels Normal size aortic root. CONCLUSIONS Normal size left ventricle. Mild concentric left ventricular hypertrophy. Left ventricular ejection fraction is estimated at >60%. Trace mitral regurgitation. Trace pulmonic regurgitation. Trace tricuspid regurgitation. Daniel Collier M.D. (Electronically Signed) Final Date: 07 October 2017 12:33 MEASUREMENTS (Male / Female) Normal Values 2D ECHO LV Diastolic Diameter PLAX 4.9 cm 4.2 - 5.9 / 3.9 - 5.3 cm LV Systolic Diameter PLAX 3.0 cm 2.1 - 4.0 cm LV Fractional Shortening PLAX 38.8 % 25 - 46 % LV Ejection Fraction 2D Teich 69.0 % IVS Diastolic Thickness 1.3 cm LVPW Diastolic Thickness 1.2 cm LV Relative Wall Thickness 0.5 LVOT Diameter 2.1 cm Aortic Root Diameter 3.1 cm LA Systolic Diameter LX 4.2 cm 3.0 - 4.0 / 2.7 - 3.8 cm LA Volume 47.0 cm 18 - 58 / 22 - 52 cm Ascending Aorta Diameter 3.5 cm DOPPLER AV Peak Velocity 132.0 cm/s AV Peak Gradient 7.0 mmHg AV Mean Velocity 103.0 cm/s AV Mean Gradient 5.0 mmHg AV Velocity Time Integral 25.7 cm LVOT Peak Velocity 97.2 cm/s LVOT Peak Gradient 3.8 mmHg LVOT Mean Velocity 65.4 cm/s LVOT Mean Gradient 2.0 mmHg LVOT Velocity Time Integral 18.4 cm LVOT Stroke Volume 63.7 cm AV Area Cont Eq vti 2.5 cm AV Area Cont Eq pk 2.6 cm MV Peak Velocity 105.0 cm/s MV Peak Gradient 4.4 mmHg MV Mean Velocity 61.0 cm/s MV Mean Gradient 2.0 mmHg Mitral E Point Velocity 61.0 cm/s Mitral A Point Velocity 86.4 cm/s Mitral E to A Ratio 0.7 MV PHT Velocity 70.6 cm/s MV Deceleration Osborne 357.0 cm/s MV Pressure Half Time 59.3 ms MV Area PHT 3.7 cm MV Deceleration Time 232.0 ms TV Peak Velocity 241.0 cm/s TV Peak E Velocity 49.1 cm/s TV Peak A Velocity 43.8 cm/s TV E to A Ratio 1.1 Right Atrial Pressure 5.0 mmHg PV Peak Velocity 89.6 cm/s PV Peak Gradient 3.2 mmHg PV Mean Velocity 64.8 cm/s PV Mean Gradient 2.0 mmHg PV Velocity Time Integral 14.1 cm LV E' Lateral Velocity 6.7 cm/s Mitral E to LV E' Lateral Ratio 9.1 LV E' Septal Velocity 4.7 cm/s Mitral E to LV E' Septal Ratio 13.0
--- NOTE | 2017-10-07 13:31 | CP SOUTH PROGRESS NOTE PSYCH ---
Psych (Inpt) Progress Note Progress Note Vital Signs: Temperature: 98.3; pulse: 99 beats/min.; blood pressure: 130/76mmHg Mental status examination: The patient seemed less anxious today. She reported that she has been sleeping well MSE: Patient denied dry mouth or nausea today The patient was alert, and oriented to time, place, and person. The patient is better able to organize her thoughts. She did not have any crying episodes during the interview today. Her anxiety seemed manageable today. She acknowledged feeling less depressed and she was less obsessive regarding her late . Paola denied hallucinations. There were no specific delusions observed during the interview today. Paola was less talkative, no pressure, she denied thoughts to harm self/she denied hallucinations. some difficulties with short-term memory as well as difficulty with attention concentration and information processing Assessment: Paola is 62-year-old white woman who presented with what seemed to be thought disorder, difficulties with attention concentration information processing reaching to the point of confusion at times Differential diagnosis includes severe depression with psychotic features Treatment plan: Continue Lexapro 20 mg QAM Continue Zofran 4 mg as needed for nausea or vomiting Continue PRN Ativan for anxiety and insomnia Continue Risperdal 1 mg twice daily continue inpatient psychiatric care with safety checks every 15 minutes Nursing assessments vital signs and patient education and Group therapy and milieu therapy CASE MAKER: Collateral, family meeting, biopsychosocial assessment, and aftercare planning Psychiatrist to evaluate patient daily for medication monitoring on mental status evaluation DICTATED BY: Cele GRIMALDO,Rick
--- NOTE | 2017-10-07 14:26 | SOCIAL WORKER PROG NOTE PSYCH ---
Social Work Progress Note Progress Note Family meeting held with Paola. Dr. Oakley, Paola, Paola's Brother Tim, her 2 sister's Vivi and Letitia were present. Talked about Paola's current dx, symptoms, and aftercare planning. The family has been exploring options for Paola to live for awhile, but due to Paola only getting 500.00 a month in disability she can't afford much here in [place]. Her Brother Tim stated Paola cannot return to his home due to how she is effecting his 's illness ( Bipolar D/O). He talked about Paola having the option to move to [facility] and that his Brother Stan and his Mallika are more than happy to have her at their home and then put a mobile home on their property for her. Paola was okay with this plan and happy to go live next to her Brother Stan. Talked about setting up clinical services and talked about how she would get on state insurance in [facility] but that would need to be explored further. Family feels this plan can happen quickly and they are willing to transport her to [facility] as soon as we are ready.
[2017-10-07 15:30] VITALS: BP 146/66
--- NOTE | 2017-10-07 15:41 | SOCIAL WORKER PROG NOTE PSYCH ---
Social Work Progress Note Progress Note SAM VILLA [id number] 1955 SAM VILLA [id number] Pended Authorization # Client Authorization # Type of Request [id number] CONCURRENT Date of Admission/ Start of Services Requested From Submission Date 09/30/2017 10/07/2017 10/07/2017
[2017-10-07 19:57] VITALS: BP 135/99
[2017-10-08 07:59] VITALS: BP 141/90
[2017-10-08 12:12] VITALS: BP 140/72
[2017-10-08 16:11] VITALS: BP 141/78
[2017-10-08 19:45] VITALS: BP 144/92
--- NOTE | 2017-10-09 00:10 | CP SOUTH PROGRESS NOTE PSYCH ---
Psych (Inpt) Progress Note Progress Note The patient was seen today during continuing care. She is a 62 years old, , female, who was hospitalized for depression with suicidal ideation, symptoms appearing and exacerbating after her 's demise more than 1 year prior to this discussion. She has been calm and pleasant on the unit, keeping mostly to herself, appropriate when responding to unit staff orpeers. She is a medium height and weight female, with shoulderlength, dark brown dyed hair, she uses reading glasses. The patient's speech is well articulated, goal directed, average in rate, volume and tone. the patient has good attention and concentration, intact memory, average fund of knowledge and is considered to be of average intelligence The patient has good insight and judgment, and is motivated for treatment. The patient believes that the medication she currently takes are helpful, reports her mood is improved, she does not have suicidal/homicidal ideation, does not have side effects from the medications. She is willing to continue the medication as prescribed and receive treatment in [place] where she is planning to move and live with her brother. We will continue present medication regimen, observation, symptom monitoring. The patient will be followed up daily by the unit psychiatrist.
[2017-10-09 07:56] VITALS: BP 142/87
[2017-10-09 12:14] VITALS: BP 134/96
[2017-10-09 15:59] VITALS: BP 133/86
[2017-10-09 19:53] VITALS: BP 150/80
--- NOTE | 2017-10-09 20:40 | CP SOUTH PROGRESS NOTE PSYCH ---
Psych (Inpt) Progress Note Progress Note The patient was discussed with the unit staff. We reviewed the inpatient and crisis medical records. We interviewed the patient 1:1 The patient reports improved mood, better sleep and appetite. She reports having increased anxiety, took gabapentin as needed to the with good results. The patient denies suicidal/homicidal ideation, auditory/visual hallucinations or side effects from medication. The patient has good attention and concentration, intact memory, average fund of knowledge and is considered to be of average intelligence The patient has good insight and judgment, and is motivated for treatment. The patient's discharge plan is to find providers in [place] where she would be living with her brother We will continue present medication regimen, observation, symptom monitoring. The patient will be followed up daily by the unit psychiatrist.
[2017-10-10 07:24] VITALS: BP 144/96
--- NOTE | 2017-10-10 10:54 | CP SOUTH PROGRESS NOTE PSYCH ---
Psych (Inpt) Progress Note Progress Note I reviewed the notes by Benita Nicolas MD for Tuesday and Tuesday The patient's progress and treatment plan were reviewed and the treatment team meeting this morning. The team included nursing staff, MAL[employer] C[employer]TER, occupational activity therapists, and psychiatrist Vital Signs: Temperature: 96.9 degrees Fahrenheit; pulse: 92 beats/min.; blood pressure: 144/96mmHg Mental status examination: The patient was alert and oriented to time, place, and person. She seemed calm/ less anxious she reported that she has been sleeping well The patient is better able to organize her thoughts. She acknowledged feeling less depressed and she was less obsessive regarding her late . Paola denied hallucinations. There were no specific delusions observed during the interview today. Paola was less talkative, no pressure, she denied thoughts to harm self/ she denied hallucinations. She seems to have better attention and concentration and more able to process information. Assessment: Paola is 62-year-old white woman who presented with what seemed to be thought disorder, difficulties with attention concentration information processing reaching to the point of confusion at times Differential diagnosis includes severe depression with psychotic features The patient has shown moderate improvement since her admission and today seemed to be doing much better as far as organizing her thinking, having better attention and concentration and information processing, denied feeling hopeless or thinking of suicide and there was no overt psychotic symptoms. She denied paranoia and did not seem to have any paranoid or delusional thoughts Treatment plan: The patient is ready for discharge as soon as aftercare plans are in place Continue Lexapro 20 mg QAM Continue PRN Ativan for anxiety and insomnia Continue Risperdal 1 mg twice daily continue inpatient psychiatric care with safety checks every 15 minutes, Nursing assessments vital signs and patient education and Group therapy and milieu therapy MALLET AND DIE CUTTER: Collateral, family meeting, biopsychosocial assessment, and aftercare planning Psychiatrist to evaluate patient daily for medication monitoring on mental status evaluation
[2017-10-10 12:03] VITALS: BP 135/89
--- NOTE | 2017-10-10 12:15 | SOCIAL WORKER PROG NOTE PSYCH ---
Social Work Progress Note Progress Note Called a couple places in [place] to explore clinical services. Connected with [facility] [phone]. Spoke with Tammi Holly. She shared that she would complete a screening once the patient arrived and then they would decide what services she would be appropriate for. They do offer an IOP. She recommended that she have a month's worth of meds and a refill due to the doctor booking out into November at this point. She asked that I fax over a clinical packet to [phone]. Met with Paola to have her sign a release and discuss the above information. She seemed fine with the referral. Processed the meeting from Tuesday with family. She feels it was productive. She said there is less anxiety over where she will be going now and at least has a plan. She feels good about living with her Brother, but will miss her other siblings in [place]. Appears less paranoid. Signed the release easily. Spoke with Brother August. He is okay with her returning home to his house today. They will leave for [place] next week. Relayed information regarding her d/ c and aftercare plans. Brother is picking her up today at 4pm. Scheduled an intake appt. at [facility] for 4/5 2pm.
[2017-10-10] MEDS ORDERED: ATIVAN1 M1 PO (13:51)
[2017-10-10] MEDS ORDERED: ESCITALOPRAM OX20 MG PO (13:51)
[2017-10-10] MEDS ORDERED: RISPERDAL1 M1 PO (13:51)
[2017-10-10] MEDS ORDERED: AMLODIPINE BESYL5 M1 PO (13:51)
--- NOTE | 2017-10-10 13:54 | Patient Discharge Instructions ---
Psych Discharge Inst General Discharge Information Reason for Admission: severe depression and anxiety Psy Discharge Primary Diag+ MDD with psychotic featur Summary Tests/Major Procedures Lab 25-OH Vitamin D Total 28.2 ng/ml L 06/03/17 UNK Cholesterol 238 MG/DL H 06/03/17 UNK Cholesterol/HDL Ratio 4 % 06/03/17 UNK HDL Cholesterol 68 mg/dL H 06/03/17 UNK Hemoglobin A1c 5.9 % H 06/03/17 UNK LDL Cholesterol, Calc 130 mg/dL H 06/03/17 UNK Triglycerides 204 mg/dL H 06/03/17 UNK Studies Pending at DC: None Patient Instructions Contact Information Your Psychiatrist on [facility] was Cele GRIMALDO,Rick * If you are experiencing an emergency related to this hospitalization, please call [phone] to contact the treating psychiatrist or the psychiatrist-on- call. * To Request a copy of your medical records, please contact the Medical Records Department at [phone]. * To request results of studies pending at the time of discharge, please call [phone]. * Continue your Medications until directed to stop by your Healthcare provider. General Medication Information Please continue to take your new medications and your continued home medications , unless otherwise indicated on your discharge medication list, or unless directed by your MD or RESEARCH PSYCHOLOGIST to stop them. Special Instructions Diet Regular Activity Normal - Tobacco Use Treatment Offered Post DC Medications Offered: Not Applicable Post DC Tobacco Treatment Plan: Not Applicable - EtOH/Drug Use D/O Treatment Offered Post DC Medications Offered: NA-No EtOH/Drug Use D/O Post DC EtOH/SubAbuse [place] Plan: NA-No EtOH/Drug Use D/O Metabolic Screening Patient on a neuroleptic(s) . Enter below results for Hemoglobin A1C, and lipid panel if obtained during the last 365 days. BMI: 27.600 Blood Pressure: 135/89 Laboratory Results From [facility] (If applicable): Lab 25-OH Vitamin D Total 28.2 ng/ml L 06/03/17 UNK Cholesterol 238 MG/DL H 06/03/17 UNK Cholesterol/HDL Ratio 4 % 06/03/17 UNK HDL Cholesterol 68 mg/dL H 06/03/17 UNK Hemoglobin A1c 5.9 % H 06/03/17 UNK LDL Cholesterol, Calc 130 mg/dL H 06/03/17 UNK Triglycerides 204 mg/dL H 06/03/17 UNK Advance Directives Does the Patient have Medical Advance Directives No/Refused further info Does Pt have Psychiatric Advance Directives? No/Refused further info Does Patient have a Designated Surrogate Decision Maker: No Information About Psychiatric Advance Directives Provided? Refused Discharge Plan Post Hospital Treatment Plan: Follow up in [place]
--- NOTE | 2017-10-10 13:57 | DISCHARGE SUMMARY REPORT-PSYCH ---
Visit Information Visit Dates/Diagnosis' Admission Date: 09/30/17 Discharge Date: 10/10/17 Reason for Admission: severe depression and anxiety Psy Discharge Primary Diag: MDD with psychotic featur Hospital Course Significant Lab Findings: The patient did not have any significant lab abnormalities while she was on the inpatient psychiatric unit Course Complications: Patient did not have any complications while she was on the inpatient psychiatric unit Consultations: The patient had a history and physical examination performed by the program support clerk/ hospitalist while she was on the inpatient psychiatric unit. Please refer to the H&P note by the hospitalist/program support clerk in the patient's electronic medical record Allergies: Coded Allergies: No Known Allergies (09/29/17) Hospital Course/TX Response: October 01, 2017: Impression and Plan: 62 year old woman with worsening depression, neuroveg sx including anhedonia, withdrawal, increased sleep, lethargy, presented after pending loss of housing. She has a number of stressors and needs further adjustment of her medications and addressing her residual sx during her admission. Plan; Continue effexor, lexapro - she is at low doses, however her qtc is 505. Will discuss with program support clerk tmr, repeat ekg. She is asymptomatic. Her labs look normal. She is on amlodipine for her hypertension. DSM 5 Diagnosis(es): r/o mdd - Initial Tx Plan for Active Psych & Medical Conditions: milieu therapy, groups, individual therapy, family meeting if indicated, medication. October 02, 2017: continue current plan of care. Bankman stated will comment on ekg if notable. October 03, 2017: D/C PRN Neurontin Add PRN Ativan for anxiety and insomnia as she appeared very anxious/overwhelmed 10/04/2017: Discontinue Benadryl because of her complaints of dry mouth Discontinue melatonin Continue PRN Ativan for anxiety and insomnia Continue Risperdal 1 mg twice daily 10/05/2017: Continue PRN Ativan for anxiety and insomnia Continue Risperdal 1 mg twice daily continue inpatient psychiatric care with safety checks every 15 minutes 10/06/2017: Zofran 4 mg as needed for nausea or vomiting Continue PRN Ativan for anxiety and insomnia Continue Risperdal 1 mg twice daily 10/07/2017: Continue Lexapro 20 mg QAM Continue Zofran 4 mg as needed for nausea or vomiting Continue PRN Ativan for anxiety and insomnia Continue Risperdal 1 mg twice daily continue inpatient psychiatric care with safety checks every 15 minutes 10/08 and 10/09/2017: Covering Psychiatrist for the Weekend, Dr. Maria Isabel MD: We will continue present medication regimen, observation, symptom monitoring. The patient will be followed up daily by the unit psychiatrist. 10/10/2017: I reviewed the notes by Benita Nicolas MD for Tuesday and Tuesday. The patient's progress and treatment plan were reviewed and the treatment team meeting this morning. The team included nursing staff, DIE MAKER [employer]LECTRONIC, occupational activity therapists, and psychiatrist Vital Signs: Temperature: 96.9 degrees Fahrenheit; pulse: 92 beats/min.; blood pressure: 144/96mmHg Mental status examination: The patient was alert and oriented to time, place, and person. She seemed calm/less anxious she reported that she has been sleeping well The patient is better able to organize her thoughts. She acknowledged feeling less depressed and she was less obsessive regarding her late . Paola denied hallucinations. There were no specific delusions observed during the interview today. Paola was less talkative, no pressure, she denied thoughts to harm self/ she denied hallucinations. She seems to have better attention and concentration and more able to process information. Assessment: Paola is 62-year-old white woman who presented with what seemed to be thought disorder, difficulties with attention concentration information processing reaching to the point of confusion at times Differential diagnosis includes severe depression with psychotic features The patient has shown moderate improvement since her admission and today seemed to be doing much better as far as organizing her thinking, having better attention and concentration and information processing, denied feeling hopeless or thinking of suicide and there was no overt psychotic symptoms. She denied paranoia and did not seem to have any paranoid or delusional thoughts Treatment plan: D/C Home Continue Lexapro 20 mg QAM Continue PRN Ativan for anxiety and insomnia Continue Risperdal 1 mg twice daily Discharge HBIPS - Tobacco Use Treatment Offered Post DC Medications Offered: Not Applicable Post DC Tobacco Treatment Plan: Not Applicable - EtOH/Drug Use D/O Treatment Offered Post DC Medications Offered: NA-No EtOH/Drug Use D/O Post DC EtOH/SubAbuse TX Plan: NA-No EtOH/Drug Use D/O Metabolic Screening - Screen if on a Neuroleptic Medication - Metabolic screening should include: - Blood Pressure, BMI, Glucose or Hgb A1c, & a - Lipid profile from within the past 365 days. Metabolic Screening Patient on a neuroleptic(s) . Enter below results for Hemoglobin A1C, and lipid panel if obtained during the last 365 days. BMI: 27.600 Blood Pressure: 135/89 Laboratory Results From [facility] (If applicable): Lab Cholesterol 238 MG/DL H 06/03/17 UNK Cholesterol/HDL Ratio 4 % 06/03/17 UNK HDL Cholesterol 68 mg/dL H 06/03/17 UNK Hemoglobin A1c 5.9 % H 06/03/17 UNK LDL Cholesterol, Calc 130 mg/dL H 06/03/17 UNK Triglycerides 204 mg/dL H 06/03/17 UNK Discharge Instructions General Discharge Information Multiple Neuroleptics: ([X]) Not Applicable Discharge Diet Regular Discharge Activity Normal DC Disposition: D/C to c/o brother in [place] Referrals Ordered Referrals Provider Referral 10/20/17 For Providers: [facility]] For Groups: [[facility]] [facility] Intake appt. 10/20/17 2pm [address], [place] [id number] Prescriptions Stop taking the following medications: Clonazepam (Clonazepam) 0.5 MG TABLET ORAL Every Morning Qty = 30 Venlafaxine HCl (Venlafaxine HCl ER) 37.5 MG CAP.ER.24H ORAL DAILY Qty = 30 Continue taking these medications: Amlodipine Besylate (Amlodipine Besylate) 5 MG TABLET 1 Tablet ORAL Every Morning Qty = 30 Comments: Last Taken:10/10/17 Time:9am This prescription has been renewed Escitalopram Oxalate (Escitalopram Oxalate) 20 MG TABLET 1 Tablet ORAL Every Morning Qty = 30 Comments: Last Taken:10/10/17 Time:9am This prescription has been renewed Start taking the following new medications: Risperidone (Risperdal) 1 MG TABLET 1 Milligram ORAL TWICE DAILY Qty = 60 Refills = 1 Comments: Last Taken:10/10/17 Time:9am LORazepam (Ativan) 1 MG TAB 1 Milligram ORAL AT BEDTIME as needed for INSOMNIA Qty = 30 No Refills Comments: Last Taken:10/09/17 Time:12am Studies Pending at Discharge None Copies To: [facility]
--- NOTE | 2017-10-10 17:29 | SOCIAL WORKER PROG NOTE PSYCH ---
Social Work Progress Note Faxed Referral(s) Referred To: [facility] Documents sent: Health Summary Faxed to: [facility] Fax #: [phone] Faxed by: Winnie Gregorio Date faxed: 10/10/17 Time Faxed: [phone]
== END 2017-10-10 15:56 | DRG 751 ==
LOC: ERH 15:52 → ERHI 09-30 14:50 → CP SOUTH 09-30 14:50 → ENRESERV 09-30 19:30 → CP SOUTH 10-02 10:18
PROVIDERS: Physician Assistant
DX: F32.3 Major depressive disorder, single episode, severe with psychotic features (principal)
CPT/HCPCS: 80307; 93005; 93010; 93306; G0480; J3101